=== PATIENT | female | born 2000 | race Caucasian/White ===

== ENCOUNTER 2021-10-24 16:36 | Emergency (ER) | payer OTHER ==
[~2021-10-24] VITALS: Ht 154.9 cm; Wt 57.6 kg
[2021-10-24 17:06] VITALS: BP 124/53
--- NOTE | 2021-10-24 17:10 | NUR ---
PT TO WAIT IN LOBBY.
--- NOTE | 2021-10-24 17:54 | NUR ---
PA DECKER WITH PT IN TRIAGE FOR FURTHER EVALUATION.
--- NOTE | 2021-10-24 19:47 | NUR ---
Patient discharged with v/s stable. Written and verbal after care instructions given and explained. Patient verbalized understanding. Ambulatory with steady gait. All questions addressed prior to discharge. Advised to follow up with PMD.
== END 2021-10-24 19:47 | disposition home or self-care (01) ==
LOC: MED 16:36
DX: S61.216A Laceration without foreign body of right little finger without damage to nail, initial encounter (principal); W26.0XXA Contact with knife, initial encounter; Y93.89 Activity, other specified; Y92.89 Other specified places as the place of occurrence of the external cause; Y99.8 Other external cause status
CPT/HCPCS: 73130; 73140; 99284